=== PATIENT | male | born 1985 | race Caucasian/White ===

== ENCOUNTER 2017-06-10 18:06 | Emergency (ER) | payer MEDICARE ==
[~2017-06-10] VITALS: Ht 180.3 cm; Wt 119.6 kg
[2017-06-10 18:57] LABS: HEMOGLOBIN 15.1 G/DL (12.5-16.6); PLATELET COUNT 197 K/uL (156-360); RBC DIS.WIDTH-CV 11.8 % (11.8-14.6); RBC DIS.WIDTH-SD 38.5 % (39-53); RED BLOOD COUNT 4.72 M/uL (4.00-5.50); WHITE BLOOD COUNT 14.3 K/uL (4.1-10.2)
[2017-06-10 19:24] LABS: ALBUMIN 4.6 g/dL (3.2-4.8); CHLORIDE 101 mEq/L (99-109); POTASSIUM 3.7 mEq/L (3.7-5.4); SODIUM 137 mEq/L (136-147)
[2017-06-10 19:26] LABS: GLUCOSE 99 mg/dL (70-99); TOTAL PROTEIN 8.1 g/dL (6.4-8.3)
[2017-06-10 19:28] LABS: TOTAL BILIRUBIN 2.9 mg/dL (0.0-1.0)
[2017-06-10 19:30] LABS: ALKALINE PHOSPHATASE 91 IU/L (3-129)
[2017-06-10 19:31] LABS: UREA NITROGEN (BUN) 12 mg/dL (9-23)
[2017-06-10 19:32] LABS: AST (GOT) 21 IU/L (2-34)
[2017-06-10 19:33] LABS: ALT (GPT) 45 IU/L (3-49); LIPASE 7 U/L (1.0-51.0)
[2017-06-10 19:48] LABS: GFR ESTIMATE (CALCULATED) > 59 mL/min/ (58.99-99999)
[2017-06-10 19:55] LABS: APPEARANCE CLEAR ((CLEAR)); BILIRUBIN NEGATIVE; BLOOD SMALL; COLOR YELLOW ((YELLOW)); GLUCOSE (STRIP) NEGATIVE; KETONES 20; LEUKOCYTES NEGATIVE; NITRITE NEGATIVE; PROTEIN (STRIP) NEGATIVE; SPECIFIC GRAVITY 1.006 (1.000-1.030); UROBILINOGEN 0.2 MG/DL (0.2-1.0)
[2017-06-10 20:21] LABS: BACTERIA RARE /HPF; EPITHELIAL CELLS NONE SEEN /HPF; MUCUS TRACE /LPF; RED BLOOD CELLS 0-5 /HPF (0-5); UCUL ADDED? NO; WHITE BLOOD CELLS 0-5 /HPF (0-5)
[2017-06-10] MEDS ORDERED: FLAGYL500 MG PO (20:47)
[2017-06-10] MEDS ORDERED: ZOFRAN ODT4 MG PO (20:47)
[2017-06-10] MEDS ORDERED: CIPRO500 MG PO (20:47)
[2017-06-10 20:58] VITALS: BP 130/83
== END 2017-06-10 20:56 | disposition home or self-care (01) ==
LOC: EME 18:06
DX: K57.32 Diverticulitis of large intestine without perforation or abscess without bleeding (principal); Z87.891 Personal history of nicotine dependence
CPT/HCPCS: 74176; 80053; 81003; 83690; 85027; 99281; 99284